=== PATIENT | male | born 1995 | race Caucasian/White ===

== ENCOUNTER 2024-02-19 12:12 | Outpatient (CLI) | payer OTHER, SELFPAY | END 2024-02-19 12:13 | disposition home or self-care (01) | PROVIDERS: PCP Physician Assistant Medical; Visit Provider Physician Assistant Medical | DX: E78.1 Pure hyperglyceridemia (principal) | CPT/HCPCS: 80053; 80061; 84443 ==

== ENCOUNTER 2024-04-22 15:28 | Outpatient (CLI) | payer OTHER, SELFPAY | END 2024-04-22 15:29 | disposition home or self-care (01) | LOC: NFLDREF 04-23 02:27 | PROVIDERS: PCP Physician Assistant Medical; Referring Provider Physician Assistant Medical; Visit Provider Physician Assistant Medical | DX: I10 Essential (primary) hypertension (principal); E78.1 Pure hyperglyceridemia | CPT/HCPCS: 80061; 84450; 84460 ==

== ENCOUNTER 2024-10-07 10:57 | Outpatient (CLI) | payer OTHER, SELFPAY | END 2024-10-07 10:58 | disposition home or self-care (01) | LOC: NFLDREF 10-09 02:25 | PROVIDERS: PCP Physician Assistant Medical; Referring Provider Physician Assistant Medical; Visit Provider Physician Assistant Medical | DX: E78.1 Pure hyperglyceridemia (principal) | CPT/HCPCS: 80061; 84450; 84460 ==

== ENCOUNTER 2025-03-05 09:02 | Outpatient (CLI) | payer OTHER, SELFPAY | END 2025-03-05 09:03 | disposition home or self-care (01) | LOC: NFLDREF 03-09 14:03 | PROVIDERS: PCP Physician Assistant Medical; Referring Provider Physician Assistant Medical; Visit Provider Physician Assistant Medical | DX: I10 Essential (primary) hypertension (principal); E78.1 Pure hyperglyceridemia; J45.40 Moderate persistent asthma, uncomplicated | CPT/HCPCS: 80053; 80061; 84439; 84443 ==